=== PATIENT | male | born 1950 | race Caucasian/White ===

== ENCOUNTER 2022-01-21 12:24 | Outpatient (CLI) | payer MEDICARE, OTHER, SELFPAY ==
--- NOTE | ~2022-01-21 | XR_ITS ---
EXAMINATION: XR chest 2V 01/21/2022 12:52 INDICATION: Melanoma PROCEDURE: 2 view chest COMPARISON: No prior studies for comparison. FINDINGS: The lungs are clear. The cardiomediastinal silhouette is within normal limits. There are no pleural effusions. There is no pneumothorax suspected. IMPRESSION: 1: NO ACUTE CARDIOPULMONARY DISEASE. Reviewed, dictated and finalized at location A.
== END 2022-01-21 12:25 | disposition home or self-care (01) ==
PROVIDERS: PCP Family Medicine Sports Medicine; Visit Provider Surgery
DX: C43.71 Malignant melanoma of right lower limb, including hip (principal)
CPT/HCPCS: 71046

== ENCOUNTER 2022-07-29 14:28 | Outpatient (CLI) | payer MEDICARE, OTHER, SELFPAY ==
--- NOTE | ~2022-07-29 | XR_ITS ---
EXAMINATION: XR chest 2V Exam Date/Time: 07/29/2022 14:42 TECHNICAL ILLUSTRATOR HISTORY: MELANOMA OF RIGHT POSTERIOR CALF NO CHEST COMPLAINTS Comparison: 01/21/2022. RESULT: Lines, tubes, and devices: None. Lungs and pleura: Questionable right upper lobe nodule versus summation artifact. Lungs otherwise cl ear. Cardiomediastinal silhouette: Stable. Other: No acute osseous or upper abdominal finding. IMPRESSION: Questionable right upper lobe pulmonary nodule versus summation artifact, recommend low-dose noncontr ast CT of the chest for further evaluation.. Reviewed, dictated and finalized at location K. NICAL ILLUSTRATOR IMPRESSION: Questionable right upper lobe pulmonary nodule versus summation artifact, recom mend low-dose noncontrast CT of the chest for further evaluation..
== END 2022-07-29 14:29 | disposition home or self-care (01) ==
LOC: ANHIMG 14:31
PROVIDERS: PCP Family Medicine Sports Medicine; Visit Provider Surgery
DX: C43.71 Malignant melanoma of right lower limb, including hip (principal); R91.8 Other nonspecific abnormal finding of lung field
CPT/HCPCS: 71046

== ENCOUNTER 2023-01-27 13:49 | Outpatient (CLI) | payer MEDICARE, OTHER, SELFPAY ==
--- NOTE | ~2023-01-27 | XR_ITS ---
Clinical Indication: Malignant melanoma PA and lateral views of the chest: Comparison: 07/29/2022 Findings: The lungs are clear, without evidence of focal consolidation or pleural effusion. Cardiome diastinal silhouette is within normal limits. Bones and soft tissues are unremarkable. Impression: Normal chest. Reviewed, dictated and finalized at location . Impression: Normal chest.
== END 2023-01-27 13:50 | disposition home or self-care (01) ==
PROVIDERS: PCP Family Medicine Sports Medicine; Visit Provider Surgery
DX: C43.71 Malignant melanoma of right lower limb, including hip (principal)
CPT/HCPCS: 71046

== ENCOUNTER 2023-07-28 14:54 | Outpatient (CLI) | payer MEDICARE, SELFPAY ==
--- NOTE | ~2023-07-28 | XR_ITS ---
XR chest 2V DATE: 07/28/2023 15:32 INDICATION: Right posterior calf melanoma TECHNIQUE: 2 views, PA and lateral projections COMPARISON: 01/27/2023 2 view chest FINDINGS: Normal heart size. No hilar or mediastinal enlargement. No pulmonary infiltrate or consol idation, pulmonary vascular congestion or pleural effusion or pneumothorax Degenerative spurring of the thoracic spine. IMPRESSION: No active cardiopulmonary disease Reviewed, dictated and finalized at location B. C SUPERVISOR
== END 2023-07-28 14:55 | disposition home or self-care (01) ==
PROVIDERS: PCP Family Medicine Sports Medicine; Visit Provider Surgery
DX: C43.71 Malignant melanoma of right lower limb, including hip (principal)
CPT/HCPCS: 71046

== ENCOUNTER 2024-09-22 15:13 | Outpatient (CLI) | payer MEDICARE, OTHER, SELFPAY ==
--- NOTE | ~2024-09-22 | XR_ITS ---
CHEST RADIOGRAPH, PA AND LATERAL CLINICAL HISTORY: melanoma of rt posterior calf . COMPARISON: 07/28/2023 TECHNIQUE: PA and lateral views of the chest. FINDINGS The cardiomediastinal silhouette is unremarkable. The lungs are clear. Visualized osseous structures and soft tissues are unremarkable. IMPRESSION: No focal infiltrate or effusion. Reviewed, dictated and finalized at location A. TICS NURSE
--- OUTSIDE RECORDS SUMMARY | 2024-09-22 16:04 | XMS_ITS | Encounter Summary ---
Author Organization [facility] Address [address] [place] [address] Care Team Providers Care Head Start Director Name Role Phone Seven Bettencourt MD Primary Care Provider [phone] Iza Ramachandran WAFER POLISHING LEAD WORKER-SENIOR ACCOUNTANT ANALYST Primary Care Provid er Encounter Details Date Type Department Care Team (Late st Contact Info) Description 07/05/2024 Lab Requisition [facility] - DermPath Lab [address] [facility], [place] [address] Elma Hinds MD [address] [facility] 3 [place] [address] Social History Tobacco Use Types Packs/Day Years Used Date Smoking Tobacco: Never Smokeless Tobacco: Never Alcohol Use Standard Drinks/Week Comments Yes 0 (1 standard drink = 0.6 oz pur e alcohol) twice week, 6 beers Sex and Gender Information Value Date Recorded Sex Assigned at Not on file Gender Identity Not on file Sexual Orientation Not on file documented as of this encounter Functional Status Functional Status Response Date of Assess ment Is person deaf or have serious hearing difficult y? No 07/22/2021 Is person blind or have serious difficulty seein g? No 07/22/2021 Does person have serious dif ficulty walking/climbing stairs? No 07/22/2021 Does person have difficulty dressing/bathing? No 07/22/2021 Does person have difficulty doing errands alone? No 07/22/2021 Cognitive Status Response Date of Assessm ent Does person have difficulty concentrating/remembering/making decisions? No 07/22/2021 documented as of this encounter Plan of Treatment Upcoming Encounters Date Type Department Care Team (Late st Contact Info) Description 09/03/2025 1:00 PM BALANCE AND HAIRSPRING ASSEMBLER Office Visit [facility] - General Surgery [address] [place] [address] Tony Oro MD [address] [facility] [address] [place] [address] documented as of this encounter Procedures Procedure Name Priority Date/Time Associated Diagnosis Comments DERMATOPATHOLOGY Routine 07/05/2024 1:52 PM BALANCE AND HAIRSPRING ASSEMBLER documented in this encounter Results * DERMATOPATHOLOGY (07/05/2024 1:52 PM BALANCE AND HAIRSPRING ASSEMBLER) Case Report Dermatopathology Report Case: [id number] Authorizing Provider: Elma Hinds MD Collected: 07/05/2024 01:52 PM Ordering Location: [facility] Physician [facility] - Received: 07/06/2024 01:34 PM DermPath Lab Pathologist: Alondra Rojas MD Specimens: A) - Skin, crown B) - Skin, right inner knee 12:02 PM [facility] DERMATOPATHOLOGY LABORATORY Final Diagnosis Specimen A. 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 SKIN, right inner knee: INTRADERMAL MELANOCYTIC NEVUS WITH CONGENITAL FEATURES (D22.9) 12:02 PM [facility] DERMATOPATHOLOGY LABORATORY Clinical History A: Non-healing r/o SCC B: pink/brown papula r/o atypia 12:02 PM [facility] DERMATOPATHOLOGY LABORATORY Gross Description Specimen A: Received is one formalin filled container labeled with the patient's name and designated crown. The specimen consists of a shave biopsy measuring 7x7x1 mm. Jar 0. Specimen B: Received is one formalin filled container labeled with the patient's name and designated right inner knee. The specimen consists of a shave biopsy measuring 5x4x1 mm. Jar 0. 4 12:02 PM [facility] DERMATOPATHOLOGY LABORATORY Microscopic Description Specimen A. SKIN, crown: The epidermis shows parakeratosis, full thickness disorderly maturation of keratinocytes, mitoses at different levels, and dyskeratotic cells. In some foci, there is loss of cohesion between the neoplastic cells, as well as individual dyskeratotic cells that lack intercellular bridges. The lesion extends to the base of the biopsy. COMMENT: An invasive squamous cell carcinoma cannot be ruled out. Specimen B. SKIN, right inner knee: There are nests of cytologically bland melanocytes within the dermis. Some of these melanocytes are concentrated around blood vessels and adnexal structures. 4 12:02 PM [facility] DERMATOPATHOLOGY LABORATORY Disclaimer An external and internal positive and negative controls are appropriate for the histochemical, immunohistochemical and immunofluorescence stain(s) in this case (if any), except where stated explicitly. The performance characteristics of the stain(s) cited in this report were developed and its performance characteristic determined by the Dermatopathology Laboratory at [facility], directed by Dr. Fred Lay. These tests need not be, and therefore are not, approved by the [place] Food and Drug Administration. The tests are used for clinical purposes. Billing Codes Specimen Charges Stain Charges 78579 74141 1 1 4 12:02 PM [facility] DERMATOPATHOLOGY LABORATORY Embedded Images 4 12:02 PM [facility] DERMATOPATHOLOGY LABORATORY Pathology/Cytology TISSUE SPECIMEN FROM SKIN / Unknown 07/05/2024 1:52 PM BALANCE AND HAIRSPRING ASSEMBLER 07/06/2024 1:34 PM BALANCE AND HAIRSPRING ASSEMBLER Miscellaneous samples (specimen) TISSUE SPECIMEN FROM SKIN / Unknown 07/05/2024 1:52 PM BALANCE AND HAIRSPRING ASSEMBLER 07/06/2024 1:34 PM BALANCE AND HAIRSPRING ASSEMBLER Elma Hinds MD LAB - PATHOLOGY/CYTO LOGY ORDERABLES DERMATOPATHOLOGY LABORATORY [facility] - Department of Dermatology [facility] Medicine [address] [place] [address], [address] [place] [address], [facility] [phone] documented in this encounter Visit Diagnoses Not on filedocumented in this encounter Care Teams Head Start Director Relationship Specialty Start Date End Date Seven Bettencourt MD [address] [place] [address] PCP - General Family Medicine 01/27/23 07/24/24 Iza Ramachandran APRN-SENIOR ACCOUNTANT ANALYST [address] [place] [address] PCP - General Nurse Practitioner 07/25/24 documented as of this encounter
--- OUTSIDE RECORDS SUMMARY | 2024-09-22 16:04 | XMS_ITS | Clinical Summary ---
Author Organization [facility] Address [address] [facility] [place] [address] Care Team Providers Care Dispatcher Service Or Work Name Role Phone Iza Ramachandran DecemberN-CORRECTIONAL THERAPY TEACHER Primary Care Provid er Source Comments [facility],non-owned Affiliates and Associated Physician Practices is amultiple site organization consisting of ambulatory clinics and hospital sitesin [place], [place], [place] and [place]. This disclosure is being madepursuant to the Care Everywhere program and may not contain all information available regarding this patient. Last updated 18.[facility] Allergies Active Allergy Reactions Criticality Noted Date Comments Peanut-Derived Itching 07/16/2021 Medications * Be aware that medications may not be up to date on this document. Alwaysverify current medications with the patient. Medication Sig Dispensed Refills Start Date End Date Status allopurinol (ZYLOPRIM) 300 MG tablet 06/26/2021 Active indomethacin (INDOCIN) 50 MG capsule 06/26/2021 Active Ibuprofen-Acetaminophe n 125-250 MG TABS Active Aspirin 325 MG CAPS Activ e hydrOXYzine HCl (ATARAX) 25 MG tablet TAKE 1 TABLET EVERY NIGHT AT BEDTIME NEEDED 12/25/2021 Active ketoconazole (NIZORAL) 2 % cream APPLY TO FACE ADN SCALP TWICE A DAY 01/14/2022 Active Active Problems Problem Noted Date Diagnosed Date Melanoma of right posterior calf 07/16/2021 Encounters Date Type Department Care Team Description 09/04/2024 2:15 PM JUICE MIXER Office Visit [facility] - General Surgery [address] [place] [address] Tony Oro MD Melanoma of right posterior calf (HCC) (Primary Dx) 09/04/2024 Travel 08/28/2024 Travel 07/25/2024 Orders Only [facility] - General Surgery [address] [place] [address] Tony Oro MD Melanoma of right posterior calf (HCC) 07/05/2024 Lab Requisition [facility] - DermPath Lab [address] [facility], [place] [address] Elma Hinds MD from Last 3 Months Immunizations Name Administration Dates Next Due Covid Pfizer primary monoval ent 12+ yr 0.3mL Purple cap 07/10/2021,10/03/2020,09/12/2020 Family History Medical History Relation Name Comments Cancer - Other Father Cancer - Other Maternal Grandfather Cancer - Other Mother Relation Name Status Comments Father Maternal Grandfather Mother Social History Tobacco Use Types Packs/Day Years Used Date Smoking Tobacco: Never Smokeless Tobacco: Never Tobacco Cessation:Counseling Given: Not Answered Alcohol Use Standard Drinks/Week Comments Yes 0 (1 standard drink = 0.6 oz pur e alcohol) twice week, 6 beers Sex and Gender Information Value Date Recorded Sex Assigned at Not on file Gender Identity Not on file Sexual Orientation Not on file Last Filed Vital Signs Vital Sign Reading Time Taken Comments Blood Pressure 150/89 09/04/2024 2:06 PM JUICE MIXER Pulse 95 09/04/2024 2:06 PM JUICE MIXER Temperature 36.1 C (97 F) 09/04/2024 2:06 PM JUICE MIXER Respiratory Rate 18 07/29/2022 11:53 AM JUICE MIXER Oxygen Saturation 96% 09/04/2024 2:06 PM JUICE MIXER Inhaled Oxygen Concentration - - Weight 81.6 kg (180 lb) 09/04/2024 2:06 PM JUICE MIXER Height 175.3 cm (5' 9 ) 09/04/2024 2:06 PM JUICE MIXER Body Mass Index 26.58 09/04/2024 2:06 PM JUICE MIXER Plan of Treatment Upcoming Encounters Date Type Department Care Team (Late st Contact Info) Description 09/03/2025 1:00 PM JUICE MIXER Office Visit [facility] - General Surgery [address] [place] [address] Tony Oro MD [address] [facility] [address] [place] [address] Health Maintenance Due Date Last Done Comments COLOGUARD (AGES 45-75) - COL ON CA SCREENING 1950 COLON MONITORING 1950 COLONOSCOPY - COLON CA SCREENING 1950 CT COLONOGRAPHY - COLON CA SCREENING 1950 Colorectal Cancer Screening 1950 FIT - COLON CA SCREENING 1950 FLEX SIG - COLON CA SCREENING 1950 LIPID TESTING 1950 MEDICARE AWV 12 MONTHS 1950 HEPATITIS C SCREENING 09/03/1968 DTAP/TDAP/TD VACCINES (1 - Tdap) 1969 PNEUMOCOCCAL VACCINE 50+ (1 of 1 - PCV) 2000 ZOSTER VACCINE (1 of 2) 2000 COVID-19 VACCINE (4 - 2023-2 5 season) 2024 07/10/2021, 10/03/2020, 09/12/2020 INFLUENZA VACCINE (#1) 2024 DEPRESSION SCREENING 07/19/2024 Respiratory Syncytial Virus (RSV) Vaccine Pt: or over 60 yrs (1 - 1-dose 75+ series) 2025 HEPATITIS B VACCINE Aged Out No longe r eligible based on patient's age to complete this topic HIB VACCINE Aged Out No longer eligi ble based on patient's age to complete this topic HPV VACCINE Aged Out No longer eligi ble based on patient's age to complete this topic MENINGOCOCCAL (Group B) VACCINE Aged Out No longer eligible b ased on patient's age to complete this topic MENINGOCOCCAL VACCINE Aged Out No estefani kenzie eligible based on patient's age to complete this topic Procedures Procedure Name Priority Date/Time Associated Diagnosis Comments DERMATOPATHOLOGY Routine 07/05/2024 1:52 PM JUICE MIXER from Last 3 Months Results * DERMATOPATHOLOGY (07/05/2024 1:52 PM JUICE MIXER) Case Report Dermatopathology Report Case: [id number] Authorizing Provider: Elma Hinds MD Collected: 07/05/2024 01:52 PM Ordering Location: [facility] - Received: 07/06/2024 01:34 PM DermPath Lab Pathologist: Alondra Rojas MD Specimens: A) - Skin, crown B) - Skin, right inner knee 12:02 PM [facility] DERMATOPATHOLOGY LABORATORY Final Diagnosis Specimen A. 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 SKIN, right inner knee: INTRADERMAL MELANOCYTIC NEVUS WITH CONGENITAL FEATURES (D22.9) 12:02 PM [facility] DERMATOPATHOLOGY LABORATORY Clinical History A: Non-healing r/o SCC B: pink/brown papula r/o atypia 12:02 PM [facility] DERMATOPATHOLOGY LABORATORY Gross Description Specimen A: Received is one formalin filled container labeled with the patient's name and designated crown. The specimen consists of a shave biopsy measuring 7x7x1 mm. Jar 0. Specimen B: Received is one formalin filled container labeled with the patient's name and designated right inner knee. The specimen consists of a shave biopsy measuring 5x4x1 mm. Jar 0. 12:02 PM [facility] DERMATOPATHOLOGY LABORATORY Microscopic Description Specimen A. [...] concentrated around blood vessels and adnexal structures. 12:02 PM JUICE MIXER DERMATOPATHOLOGY LABORATORY Disclaimer An external and internal positive and negative controls are appropriate for the histochemical, immunohistochemical and immunofluorescence stain(s) in this case (if any), except where stated explicitly. The performance characteristics of the stain(s) cited in this report were developed and its performance characteristic determined by the Dermatopathology Laboratory at [facility], directed by Dr. Fred Lay. These tests need not be, and therefore are not, approved by the [place] Food and Drug Administration. The tests are used for clinical purposes. Billing Codes Specimen Charges Stain Charges 13332 60504 1 1 4 12:02 PM [facility] M[facility]ER DERMATOPATHOLOGY LABORATORY Embedded Images 4 12:02 PM [facility] DERMATOPATHOLOGY LABORATORY Pathology/Cytology TISSUE SPECIMEN FROM SKIN / Unknown 07/05/2024 1:52 PM JUICE MIXER 07/06/2024 1:34 PM JUICE MIXER Miscellaneous samples (specimen) TISSUE SPECIMEN FROM SKIN / Unknown 07/05/2024 1:52 PM JUICE MIXER 07/06/2024 1:34 PM JUICE MIXER Elma Hinds MD LAB - PATHOLOGY/CYTO LOGY ORDERABLES Performing Organization Address City/State/[facility] Co de Phone Number DERMATOPATHOLOGY LABORATORY [facility] - Department of Dermatology [facility] Specialized Medicine [address] [place] [address], [address] [phone] from Last 3 Months Care Teams Dispatcher Service Or Work Relationship Specialty Start Date End Date Iza Ramachandran December, SELLING UNDERWRITER-CORRECTIONAL THERAPY TEACHER [address] [place] [address] PCP - General Nurse Practitioner 07/25/24
--- OUTSIDE RECORDS SUMMARY | 2024-09-22 16:04 | XMS_ITS | Encounter Summary ---
Author Organization [facility] Address [address] [facility] [place] [address] Care Team Providers Care Erp Specialist Name Role Phone Seven Bettencourt MD Primary Care Provider [phone] Iza Ramachandran SPECIAL EDUCATION AIDE-ORIENTAL RUG STRETCHER Primary Care Provid er Encounter Details Date Type Department Care Team (Late st Contact Info) Description 03/01/2023 Lab Requisition [facility] - DermPath Lab [address] [facility], [place] [address] Elma Hinds MD [address] [facility] 3 [place] [address] Social History Tobacco Use Types Packs/Day Years [...] st Contact Info) Description 09/03/2025 1:00 PM FREIGHT CONDUCTOR Office Visit [facility] - General Surgery [address] [place] [address] Tony Oro MD [address] [facility] [address] [place] [address] documented as of this encounter Procedures Procedure Name Priority Date/Time Associated Diagnosis Comments DERMATOPATHOLOGY Routine 03/01/2023 2:36 PM CDT documented in this encounter Results * DERMATOPATHOLOGY (03/01/2023 2:36 PM CDT) Case Report Dermatopathology Report Case: [id number] Authorizing Provider: Elma Hinds MD Collected: 03/01/2023 02:36 PM Ordering Location: [facility] DermPath Lab Received: 03/02/2023 01:42 PM Pathologist: Samia Ortiz MD Specimen: Skin, right arm 3 2:13 PM CDT DERMATOPATHOLOGY LABORATORY Final Diagnosis Specimen A. SKIN, right arm: LENTIGINOUS MELANOCYTIC NEVUS, JUNCTIONAL TYPE, IRRITATED (D22.61) 3 2:13 PM CDT DERMATOPATHOLOGY LABORATORY Clinical History NEVUS R/O MM 3 2:13 PM CDT DERMATOPATHOLOGY LABORATORY Gross Description Specimen A: Received is one formalin filled container labeled with the patient's name and designated right arm. The specimen consists of a shave biopsy measuring 8x5x1 mm. Jar 0. 3 2:13 PM CDT DERMATOPATHOLOGY LABORATORY Microscopic Description Specimen A. SKIN, right arm: This is a junctional nevus. There is melanin pigment in the stratum corneum. There is a lentiginous proliferation of melanocytes between nests of cells along the dermal-epidermal junction. There is underlying fibroplasia of the papillary dermis. (Junctional Jaxon's Nevus) 3 2:13 PM CDT DERMATOPATHOLOGY LABORATORY Disclaimer An external and internal positive and negative controls are appropriate for the histochemical, immunohistochemical and immunofluorescence stain(s) in this case (if any), except where stated explicitly. The performance characteristics of the stain(s) cited in this report were developed and its performance characteristic determined by the Dermatopathology Laboratory at [facility], directed by Dr. Fred Lay. These tests need not be, and therefore are not, approved by the [place] Food and Drug Administration. The tests are used for clinical purposes. Billing Codes Specimen Charges Stain Charges 23365 1 3 2:13 PM CDT DERMATOPATHOLOGY LABORATORY Embedded Images 3 2:13 PM CDT DERMATOPATHOLOGY LABORATORY Pathology/Cytolo gy TISSUE SPECIMEN FROM SKIN / Unknown 03/01/2023 2:36 PM CDT 03/02/2023 1:42 PM CDT Elma Hinds MD LAB - PATHOLOGY/CYTO LOGY ORDERABLES Performing Organization Address City/State/[facility] Co de Phone Number DERMATOPATHOLOGY LABORATORY [facility] - Department of Dermatology [facility] Medicine [address] [place] [address], [address] [phone] documented in this encounter Visit Diagnoses Not on filedocumented in this encounter Care Teams Erp Specialist Relationship Specialty Start Date End Date Seven Bettencourt MD [address] [place] [address] PCP - General Family Medicine 01/27/23 07/24/24 Iza Ramachandran, MINDY-ORIENTAL RUG STRETCHER [address] [place] [address] PCP - General Nurse Practitioner 07/25/24 documented as of this encounter
--- OUTSIDE RECORDS SUMMARY | 2024-09-22 16:05 | XMS_ITS ---
Author Organization [facility] [employer], [facility] Address [address] [place] [address] Dr. Hernandez [address] [place] [phone] Care Team Providers Care Chief Talent Officer Name Role Phone Troy Nicole MD Primary Care Provider Thong Alvarado Unavailable [phone] REASON FOR VISIT 10/27 GH colon prep Medications Medication SIG (Take, Route, Frequency, Duration) Notes Start Date End Date Status Suflave 178.7 GM ML Orally twice a da y, Follow Physician Instructions. for 1 days Name of Prep: Suflave Date of Colon: 10/27 Pt. 09/22/2024 Active Encounters Encounter Location Date Provider Diagnosis [address] Hernandez [address] [place] [phone] 09/21/2024 Thong Curiel Plan Of Treatment Medication Medication Name Sig Start Date Stop Date Notes Suflave 178.7 GM ML Orally twice a da y, Follow Physician Instructions. for 1 days 09/22/2024 Name of Prep: Suflave Date of Colon: 10/27 Pt. Next Appt Details Provider Name:Thong Curiel, 10/27/2024 11:00:00 AM, [address] [facility], [address], [place], [address], Progress Notes * Oren BRUMFIELD CDOB:[birth year] (74 yo M)Acc No.[id number]:09/21/2024 Patient: Mayito DIAZyamile Daugherty :1950 A ge:74 Y S ex:Male Address:[address] [place] [address], [address] * Refills Start Suflave Solution Reconstituted, 178.7 GM, Orally, 1 Kit, ML, twice a day, Follow Physician Instructions., 1 days, Refills=0 * true * Date: Generated for Andres vilchis/Kayode/Fernitting on: 0 09/22/2024 04:04 PM PATIENT TRANSITION SPECIALIST
--- OUTSIDE RECORDS SUMMARY | 2024-09-22 16:05 | XMS_ITS | Patient Health Summary ---
Author Organization [facility] Address [address] [place] [address] Care Team Providers Care Security Officer Supervisor Name Role Phone Iza Ramachandran December [employer] DEPARTMENT CHAIR-SORTING SUPERVISOR Primary Care Provid er Note from [facility],non-owned Affiliates and Associated Physician Practices is amultiple site organization consisting of ambulatory clinics and hospital sitesin [place], [place], [place] and [place]. This disclosure is being madepursuant to the Care Everywhere program and may not contain all information available regarding this patient. Last updated 18.[facility] Allergies * Peanut-Derived(Itching) Medications * Be aware that medications may not be up to date on this document. Alwaysverify current medications with the patient. 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 Immunizations * Covid Pfizer primary monovalent 12+ yr 0.3mL Purple cap(Given 07/10/2021, 10/03/2020, 09/12/2020) Social History Tobacco Use Types Packs/Day Years [...] Comments Blood Pressure 150/89 09/04/2024 2:06 PM MAGAZINE WORKER Pulse 95 09/04/2024 2:06 PM MAGAZINE WORKER Temperature 36.1 C (97 F) 09/04/2024 2:06 PM MAGAZINE WORKER Respiratory Rate 18 07/29/2022 11:53 AM MAGAZINE WORKER Oxygen Saturation 96% 09/04/2024 2:06 PM MAGAZINE WORKER Inhaled Oxygen Concentration - - Weight 81.6 kg (180 lb) 09/04/2024 2:06 PM MAGAZINE WORKER Height 175.3 cm (5' 9 ) 09/04/2024 2:06 PM MAGAZINE WORKER Body Mass Index 26.58 09/04/2024 2:06 PM MAGAZINE WORKER Procedures * DERMATOPATHOLOGY(Performed 07/05/2024) * DERMATOPATHOLOGY(Performed 03/01/2023) * DERMATOPATHOLOGY(Performed 08/13/2022) * DERMATOPATHOLOGY(Performed 01/14/2022) * PATHOLOGY TISSUE(Performed 07/22/2021) Performed for Melanoma of right posterior calf (HCC) * GRAFT SKIN SPLIT THICKNESS(Performed 07/22/2021) Performed for Melanoma of right posterior calf (HCC) * EXCISION MASS OR TUMOR LEG/KNEE(Performed 07/22/2021) Performed for Melanoma of right posterior calf (HCC) * WI SENTINEL LYMPH NODE BX PROC PERFORM(Performed 07/22/2021) Performed for Melanoma of right posterior calf (HCC) * LARYNGEAL MASK AIRWAY(Performed 07/22/2021) * NM LYMPHOSCINTIGRAPHY(Performed 07/22/2021) Performed for Melanoma of right posterior calf (HCC) * XR CHEST 2VW(Performed 07/16/2021) Performed for Melanoma of right posterior calf (HCC) * COMPREHENSIVE METABOLIC PANEL(Performed 07/16/2021) Performed for Melanoma of right posterior calf (HCC) * CBC W AUTO DIFFERENTIAL(Performed 07/16/2021) Performed for Melanoma of right posterior calf (HCC) * EKG 12-LEAD(Performed 07/16/2021) Performed for Melanoma of right posterior calf (HCC) * DERMATOPATHOLOGY(Performed 07/03/2021) Results * DERMATOPATHOLOGY (07/05/2024 1:52 PM MAGAZINE WORKER) Only the most recent of5 resultswithin the time period is included. Case Report Dermatopathology Report Case: [id number] Authorizing Provider: Elma Hinds MD Collected: 07/05/2024 01:52 PM Ordering Location: [facility] - Received: 07/06/2024 01:34 PM DermPath Lab Pathologist: Alondra Rojas MD Specimens: A) - Skin, crown B) - Skin, right inner knee 12:02 PM MAGAZINE WORKER DERMATOPATHOLOGY LABORATORY Final Diagnosis Specimen A. 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 SKIN, right inner knee: INTRADERMAL MELANOCYTIC NEVUS WITH CONGENITAL FEATURES (D22.9) 12:02 PM MAGAZINE WORKER DERMATOPATHOLOGY LABORATORY Clinical History A: Non-healing r/o SCC B: pink/brown papula r/o atypia 12:02 PM MAGAZINE WORKER DERMATOPATHOLOGY LABORATORY Gross Description Specimen A: Received [...] measuring 5x4x1 mm. Jar 0. 12:02 PM MAGAZINE WORKER DERMATOPATHOLOGY LABORATORY Microscopic Description Specimen A. SKIN, [...] vessels and adnexal structures. 4 12:02 PM MAGAZINE WORKER DERMATOPATHOLOGY LABORATORY Disclaimer An external and internal positive and negative controls are appropriate for the histochemical, immunohistochemical and immunofluorescence stain(s) in this case (if any), except where stated explicitly. The performance characteristics of the stain(s) cited in this report were developed and its performance characteristic determined by the Dermatopathology Laboratory at [facility], directed by Dr. Fred Lay. These tests need not be, and therefore are not, approved by the [place] Food and Drug Administration. The tests are used for clinical purposes. Billing Codes Specimen Charges Stain Charges 39450 28567 1 1 4 12:02 PM MAGAZINE WORKER DERMATOPATHOLOGY LABORATORY Embedded Images 4 12:02 PM MAGAZINE WORKER DERMATOPATHOLOGY LABORATORY Pathology/Cytology TISSUE SPECIMEN FROM SKIN / Unknown 07/05/2024 1:52 PM MAGAZINE WORKER 07/06/2024 1:34 PM MAGAZINE WORKER Miscellaneous samples (specimen) TISSUE SPECIMEN FROM SKIN / Unknown 07/05/2024 1:52 PM MAGAZINE WORKER 07/06/2024 1:34 PM MAGAZINE WORKER Elma Hinds MD LAB - PATHOLOGY/CYTO LOGY ORDERABLES DERMATOPATHOLOGY LABORATORY [facility] Department of Dermatology [address], [address] [phone] * PATHOLOGY TISSUE (07/22/2021 2:19 PM MAGAZINE WORKER) Case Report Surgical Pathology Report Case: [id number] Authorizing Provider: Tony Oro MD Collected: 07/22/2021 02:19 PM Ordering Location: [facility] Received: 07/22/2021 03:27 PM Pathologist: Fariba Maldonado Mai, DO Specimens: A) - [place] Lymph Node, Right Groin [place] Lymph Node, Stitch at Hot Spot - PERM B) - Skin, Right Calf Melanoma; Stitch at 12 O'Clock - PERM 07/27/2021 11:28 AM MAGAZINE WORKER [facility] Final Diagnosis Lymph node, right groin sentinel, dissection (A): - No melanoma in one lymph node (0/1) Skin, right calf, excision (B): - No residual melanoma - Biopsy site changes 07/27/2021 11:28 AM [facility] Microscopic Description and Comment A. Sections show a lymph node with extensive fatty replacement. Properly controlled [place] 1/Melan-A and HMB45 stains were performed to evaluate the sentinel node. There is no evidence of metastatic melanoma. B. Sections show skin with ulceration, granulation tissue and acute inflammation consistent with biopsy site changes. The epidermis in this region shows reactive hyperplasia. HMB45 staining did not reveal any atypical melanocytic proliferation at the biopsy bed. There is no evidence of residual melanoma. 07/27/2021 11:28 AM [facility] Clinical History The patient is a 70-year-old male with a history of pigmented lesion on the right thigh. A biopsy revealed a 1.5 mm thickness melanoma, not present at the margin. The patient underwent a wide excision of the lesion and lymph node dissection. 07/27/2021 11:28 AM [facility] Gross Description The requisition and specimen (s) are identified with the patient's name, Oren Perez. Received in formalin, specimen A is a soft yellow-lang fragment of fibroadipose tissue 2.2 x 2 x 1.3 cm. There is a stitch designated hotspot. Dissection reveals a single lymph node 1.9 x 1.8 x 0.9 cm. The lymph node is trisected and submitted entirely in cassettes A1 and A2. Received in formalin, specimen B , is a circular segment of light lang skin 5.7 x 5.2 cm with 1.0 cm depth of yellow-lang subcutaneous tissue. There is a stitch designated 12:00. There is a central ulceration 1.7 x 1.2 cm, 1.9 cm from 12:00 margin, 1.9 cm from 3:00 margin, 2.1 cm from 6:00 margin, and 2.1 cm from 9:00 margin. The specimen is inked as follows: 3:00 margin-green 9:00 margin-blue, and deep margin black. Sectioning reveals no discrete lesion. Specimen is submitted as follows: B1-12:00 perpendicular margin, B2-6:00 perpendicular margin, [id number] entirely submitted from 12:00 to 6:00 (complete cross-section bisected per cassette). 07/27/2021 11:28 AM [facility] Disclaimer The performance characteristics of all immunohistochemical and indirect immunofluorescence stains (if any) cited in this report were determined by the Histopathology Laboratory of [facility]. Some of these tests were developed by our own laboratory and have not been cleared or approved by the US Food and Drug Administration. The FDA does not require this test to go through premarket FDA review. These tests are used for clinical purposes. They should not be regarded as investigational or for research. This laboratory is certified under the Clinical Laboratory Improvement Amendments (CLIA) as qualified to perform high complexity clinical laboratory testing. This case has been personally reviewed and interpreted by the attending (teaching) pathologist. 07/27/2021 11:28 AM [facility] Embedded Images 07/27/2021 11:28 AM [facility] Lymph Node Dissection SPECIMEN FROM SENTINEL LYMPH NODE / Unknown 07/22/2021 2:19 PM MAGAZINE WORKER 07/22/2021 3:27 PM MAGAZINE WORKER Comment:Pre-op diagnosis: MELANOMA RIGHT CALF Biopsy, Excision TISSUE SPECIMEN FROM SKIN / Unknown 07/22/2021 2:42 PM MAGAZINE WORKER 07/22/2021 3:27 PM MAGAZINE WORKER Comment:Pre-op diagnosis: MELANOMA RIGHT CALF Tony Oro MD LAB - PATHOLOGY/CYTO LOGY ORDERABLES Performing Organization Address [facility]/State/[facility] Phone Number [facility] [address] [phone] * LARYNGEAL MASK AIRWAY (07/22/2021 1:56 PM MAGAZINE WORKER) Narrative Mars Morgan APRN-CELL RELINER - 07/22/2021 1:56 PM MAGAZINE WORKER Mars Morgan APRN-CRNA 07/22/2021 1:57 PM LMA Placement Procedure/LDA Note: Patient Location: OR. LMA Insertion Date/Time: 07/22/2021 1:40 PM Procedure: LMA. Pretreatment: 100% O2 Induction: standard IV Patient position: sniffing. Mask Ventilation: easy Type: LMA Size: 4 Number of Attempts: 1. Placement verified by: direct visualization, bilateral breath sounds, chest auscultation and CO2 monitor Dentition unchanged? Yes Procedure Start Time: 07/22/2021 1:40 PM. Staff Section Anesthesia Provider: Mars Morgan APRN-LUKASZ, Performed the procedure Ellie Koroma MD GENERAL ANESTHESIA ORDERABLES * NM LYMPHOSCINTIGRAPHY (07/22/2021 11:44 AM MAGAZINE WORKER) Anatomical Region Laterality Modality Nuclear Medicine 07/22/2021 11:3 4 AM MAGAZINE WORKER Impressions 07/22/2021 4:00 PM MAGAZINE WORKER IMPRESSION: [place] lymph node identification and marking in the right inguinal region. This report was approved by Blank Arroyo on 07/22/2021 2:56 PM . I, Dr. YUN ALVAREZ D.O. have personally reviewed and interpreted this examination/study. This report was electronically signed by YUN ALVAREZ D.O. on 07/22/2021 4:00 PM . Narrative 07/22/2021 4:00 PM MAGAZINE WORKER PROCEDURE: Lymphoscintigraphy - [place] lymph node detection. HISTORY: 70-year-old male with right posterior calf melanoma. The patient is opting for wide excision with sentinel lymph node dissection. Patient's BMI 26.45 kg/m2. TECHNIQUE: A total dose of 991 uCi Tc-99m tilmanocept (Lymphoseek) was given intradermally by 4 separate intradermal injections around the original lesion in the right posterior calf by Dr. Oro. Dr. Alvarez was there for the torres portion of the procedure. Planar dynamic images of pelvis and lower extremities were obtained. COMPARISON: No prior similar study is available for comparison. FINDINGS: Planar dynamic images of pelvis and lower extremities initially shows a faint trail of activity leading towards right inguinal region. Subsequently, a sentinel node is localized in the right inguinal region. No evidence of sentinel lymph node contralaterally. The sentinel lymph node was marked on the skin based on anterior and posterior projection. Procedure Note Yun Alvarez, - 07/22/2021 PROCEDURE: Lymphoscintigraphy - [place] lymph node detection. HISTORY: 70-year-old male with right posterior calf melanoma. The patient isopting for wide excision with sentinel lymph node dissection. Patient's BMI26.45 kg/m2. TECHNIQUE: A total dose of 991 uCi Tc-99m tilmanocept (Lymphoseek) was given intradermally by 4 separate intradermal injections around the original lesion in the right posterior calf by Dr. Oro. Dr. Alvarez was there for the torres portion of the procedure. Planar dynamic images of pelvisand lower extremities were obtained. COMPARISON: No prior similar study is available for comparison. FINDINGS: Planar dynamic images of pelvis and lower extremities initially shows a faint trail of activity leading towards right inguinal region. Subsequently, a sentinel node is localized in the right inguinal region. No evidence of sentinel lymph node contralaterally. The sentinel lymph node was marked on the skin based on anterior and posterior projection. IMPRESSION: [place] lymph node identification and marking in the right inguinal region. This report was approved by Blank Arroyo on 07/22/2021 2:[address] YUN Fischer D.O. have personally reviewed and interpreted this examination/study. This report was electronically signed by YUN ALVAREZ D.O. on07/22/2021 4:00 PM . Tony Oro MD [place] ORDERABLES * XR CHEST 2VW (07/16/2021 1:35 PM MAGAZINE WORKER) Anatomical Region Laterality Modality Chest Radiographic Josette ging 07/16/2021 3:41 PM MAGAZINE WORKER Impressions 07/16/2021 5:15 PM MAGAZINE WORKER FINDINGS/IMPRESSION: Asymmetric elevation of the right hemidiaphragm. There are several perihilar calcified granulomas/lymph nodes seen on the right. There is no focal consolidation, pleural effusion, or pneumothorax. The cardiomediastinal silhouette is normal. The visible bony thorax is intact. Dictated by Myke Holden DO (cardiac cath lab radiology technologist). Dr. JESS Fischer have personally reviewed and interpreted this examination/study. This report was electronically signed by JESS BURCH on 07/16/2021 5:15 PM . Narrative 07/16/2021 5:15 PM MAGAZINE WORKER EXAMINATION: XR CHEST 2VW HISTORY: C43.71: Melanoma of right posterior calf COMPARISON: None. Procedure Note Jess Burch MD - 07/16/2021 EXAMINATION: XR CHEST 2VW HISTORY: C43.71: Melanoma of right posterior calf COMPARISON: None. FINDINGS/IMPRESSION: Asymmetric elevation of the right hemidiaphragm. There are several perihilar calcified granulomas/lymph nodes seen on the right. There isno focal consolidation, pleural effusion, or pneumothorax. The cardiomediastinal silhouette is normal. The visible bony thorax isintact. Dictated by Myke Holden DO (cardiac cath lab radiology technologist). I, Dr. JESS BURCH have personally reviewed and interpreted this examination/study. This report was electronically signed by JESS BURCH on 07/16/2021 5:15 PM . Tony Oro MD DIAGNOSTIC IMAGING O RDERABLES * (ABNORMAL) CBC WITH DIFFERENTIAL (07/16/2021 1:20 PM MAGAZINE WORKER) WBC 5.8 3.5 - 10.5 10 3/uL 07/16/2021 2:[address] [facility] RBC 3.86(L) 4.30 - 5.70 10 6/uL 07/16/2021 2:20 PM [facility] Hemoglobin 11.5(L) 12.0 - 17.6 g/dL 07/16/2021 2:20 PM [facility] Hematocrit 37.0 35.2 - 51.7 % 07/16/2021 2:20 PM [facility] MCV 95.9 80.7 - 98.3 fL 07/16/2021 2:20 PM [facility] MCH 29.8 26.7 - 34.0 pg 07/16/2021 2:20 PM [facility] MCHC 31.1 30.8 - 35.9 g/dL 07/16/2021 2:20 PM [facility] Platelet Count 256 150 - 400 10 3/uL 07/16/2021 2:20 PM [facility] RDW-SD 47.2 36.0 - 50.0 fL 07/16/2021 2:20 PM [facility] RDW-CV 13.3 11.2 - 14.8 % 07/16/2021 2:20 PM [facility] MPV 10.0 9.4 - 12.9 fL 07/16/2021 2:20 PM [facility] nRBC Absolute 0.00 0 10 3/uL 07/16/2021 2:20 PM [facility] nRBC Auto 0.0 0 /100 WBC 07/16/2021 2:20 PM [facility] Neutrophils % 51.2 35.0 - 70.0 % 07/16/2021 2:20 PM [facility] Lymphocytes % 37.5 20.0 - 43.0 % 07/16/2021 2:20 PM [facility] Monocytes % 9.3 5.0 - 13.0 % 07/16/2021 2:20 PM [facility] Eosinophils % 1.2 0.0 - 6.0 % 07/16/2021 2:20 PM [facility] Basophil % 0.5 0.0 - 2.0 % 07/16/2021 2:20 PM [facility] Neutrophils Absolute 3.0 1.6 - 7.0 10 3/uL 07/16/2021 2:20 PM [facility] Lymphocyte Absolute 2.2 1.1 - 3.9 10 3/uL 07/16/2021 2:20 PM [facility] Monocytes Absolute 0.54 0.26 - 1.07 10 3/uL 07/16/2021 2:20 PM [facility] Eosinophils Absolute 0.07 0.00 - 0.47 10 3/uL 07/16/2021 2:20 PM [facility] Basophils Absolute 0.03 0.00 - 0.08 10 3/uL 07/16/2021 2:20 PM [facility] Immature Granulocytes % 0.3 0.0 - 1.0 % 07/16/2021 2:20 PM [facility] Immature Granulocytes Absolute 0.02 07/16/2021 2:20 PM [facility] Blood BLOOD SPECIMEN / Unknown Lab Venipuncture / Unknown 07/16/2021 1:20 PM MAGAZINE WORKER 07/16/2021 2:14 PM MAGAZINE WORKER Tony Oro MD LAB - HEMATOLOGY ORD ERABLES [facility] [address] [place] [address], [facility] [phone] * (ABNORMAL) COMPREHENSIVE METABOLIC PANEL (07/16/2021 1:20 PM MAGAZINE WORKER) BUN 13 7 - 26 mg/dL 07/16/2021 2:37 PM [facility] Creatinine 1.03 0.71 - 1.16 mg/dL 07/16/2021 2:37 PM [facility] Sodium 141 136 - 145 mmol/L 07/16/2021 2:37 PM [facility] Potassium 4.5 3.5 - 4.5 mmol/L 07/16/2021 2:37 PM [facility] Chloride 108(H) 98 - 107 mmol/L 07/16/2021 2:37 PM [facility] CO2 25 22 - 29 mmol/L 07/16/2021 2:37 PM [facility] Glucose 96 70 - 115 mg/dL 07/16/2021 2:37 PM [facility] Calcium 9.3 8.4 - 10.2 mg/dL 07/16/2021 2:37 PM [facility] Protein Total 7.8 6.0 - 8.3 g/dL 07/16/2021 2:37 PM [facility] Albumin 4.0 3.4 - 5.0 g/dL 07/16/2021 2:37 PM [facility] Bilirubin Total 0.4 0.2 - 1.2 mg/dL 07/16/2021 2:37 PM [facility] Alkaline Phosphatase 73 40 - 150 U/L 07/16/2021 2:37 PM [facility] ALT 24 5 - 55 U/L 07/16/2021 2:37 PM [facility] AST 21 5 - 34 U/L 07/16/2021 2:37 PM [facility] Anion Gap 13 8 - 18 07/16/2021 2:37 PM [facility] BUN/Creatinine Ratio 13 7 - 23 07/16/2021 2:37 PM [facility] Osmolality Calculated 292 270 - 300 mOsm/kg 07/16/2021 2:37 PM MAGAZINE WORKER [facility] Albumin/Globulin Ratio 1.1 1.1 - 2.3 07/16/2021 2:37 PM [facility] eGFR by CKD-EPI 73(L) >=90 mL/min/1.7 3 m2 07/16/2021 2:37 PM MAGAZINE WORKER [facility] Blood BLOOD SPECIMEN / Unknown Lab Venipuncture / Unknown 07/16/2021 1:20 PM MAGAZINE WORKER 07/16/2021 2:14 PM MAGAZINE WORKER Tony Oro MD LAB - CHEMISTRY ORDE CY [facility] [address] [place] [address], [facility] [phone] * EKG 12-LEAD (07/16/2021 12:06 PM MAGAZINE WORKER) Pathologist [facility] Ventricular Rate 75 BPM [facility] MUSE Atrial Rate 75 BPM [facility] P-R Interval 192 ms [facility] QRS Duration ms 122 ms [facility] Q-T Interval ms 400 ms [facility] QTC Calculation (Bezet) 446 ms [facility] Calculated P [place] 57 degrees [facility] Calculated R [place] 30 degrees [facility] Calculated T [place] 48 degrees [facility] Interpretation EKG NORMAL SINUS RHYTHM POSSIBLE SEPTAL INFARCT , AGE UNDETERMINED ABNORMAL ECG NO PREVIOUS ECGS AVAILABLE Confirmed by Addi Lowe ([id number]) on 07/18/2021 11:01:37 AM [facility] 07/16/2021 12:0 6 PM MAGAZINE WORKER 07/18/2021 11:01 AM MAGAZINE WORKER Tony Oro MD ECG ORDERABLES [facility] Care Teams Security Officer Supervisor Relationship Specialty Start Date End Date DuarteIza navarrete December, [employer] DEPART[employer] CHAIR-SORTING SUPERVISOR [address] [place] [address] PCP - General Nurse Practitioner 07/25/24
--- OUTSIDE RECORDS SUMMARY | 2024-09-22 16:05 | XMS_ITS | Referral Summary ---
Author Organization [facility] Address [address] [facility] [place] [address] Care Team Providers Care Commercial Lease Administrator Name Role Phone Iza Ramachandran DecemberN-HTML DEVELOPER Primary Care Provid er Source Comments [facility],non-owned Affiliates and Associated Physician Practices is amultiple site organization consisting of ambulatory clinics and hospital sitesin [place], [place], [place] and [place]. This disclosure is being madepursuant to the Care Everywhere program and may not contain all information available regarding this patient. Last updated 18.[facility] Encounters Date Type Department Care Team Description 09/04/2024 Travel 09/04/2024 2:15 PM MOISTURE CONDITIONER OPERATOR Office Visit [facility] - General Surgery [address] [place] [phone] Tony Oro MD Melanoma of right posterior calf (HCC) (Primary Dx) 08/28/2024 Travel 07/25/2024 Orders Only [facility] - General Surgery [address] [place] [phone] Tony Oro MD Melanoma of right posterior calf (HCC) 07/05/2024 Lab Requisition [facility] - DermPath Lab [address] [facility] [place] [phone] Elma Hinds MD from Last 3 Months Allergies Active Allergy Reactions Criticality Noted Date [...] Melanoma of right posterior calf 07/16/2021 Immunizations Name Administration Dates Next Due Katheryn Appetise primary monoval ent 12+ yr 0.3mL Purple cap 07/10/2021,10/03/2020,09/12/2020 Social History Tobacco Use Types Packs/Day Years [...] Comments Blood Pressure 150/89 09/04/2024 2:06 PM MOISTURE CONDITIONER OPERATOR Pulse 95 09/04/2024 2:06 PM MOISTURE CONDITIONER OPERATOR Temperature 36.1 C (97 F) 09/04/2024 2:06 PM MOISTURE CONDITIONER OPERATOR Respiratory Rate 18 07/29/2022 11:53 AM MOISTURE CONDITIONER OPERATOR Oxygen Saturation 96% 09/04/2024 2:06 PM MOISTURE CONDITIONER OPERATOR Inhaled Oxygen Concentration - - Weight 81.6 kg (180 lb) 09/04/2024 2:06 PM MOISTURE CONDITIONER OPERATOR Height 175.3 cm (5' 9 ) 09/04/2024 2:06 PM MOISTURE CONDITIONER OPERATOR Body Mass Index 26.58 09/04/2024 2:06 PM MOISTURE CONDITIONER OPERATOR Functional Status Functional Status Response Date of [...] person have difficulty concentrating/remembering/making decisions? No 07/22/2021 Plan of Treatment Upcoming Encounters Date Type Department Care Team (Late st Contact Info) Description 09/03/2025 1:00 PM MOISTURE CONDITIONER OPERATOR Office Visit [facility] - General Surgery [address] [place] [phone] Tony Oro MD [address] [facility] [address] [place] [address] Procedures Procedure Name Priority Date/Time Associated Diagnosis Comments DERMATOPATHOLOGY Routine 07/05/2024 1:52 PM MOISTURE CONDITIONER OPERATOR from Last 3 Months Results * DERMATOPATHOLOGY (07/05/2024 1:52 PM MOISTURE CONDITIONER OPERATOR) Case Report Dermatopathology Report Case: [id number] Authorizing Provider: Elma Hinds MD Collected: 07/05/2024 01:52 PM Ordering Location: [facility] - Received: 07/06/2024 01:34 PM DermPath Lab Pathologist: Alondra Rojas MD Specimens: A) - Skin, crown B) - Skin, right inner knee 12:02 PM MOISTURE CONDITIONER OPERATOR DERMATOPATHOLOGY LABORATORY Final Diagnosis Specimen A. 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 SKIN, right inner knee: INTRADERMAL MELANOCYTIC NEVUS WITH CONGENITAL FEATURES (D22.9) 4 12:02 PM MOISTURE CONDITIONER OPERATOR DERMATOPATHOLOGY LABORATORY Clinical History A: Non-healing r/o SCC B: pink/brown papula r/o atypia 4 12:02 PM MOISTURE CONDITIONER OPERATOR DERMATOPATHOLOGY LABORATORY Gross Description Specimen A: Received [...] 5x4x1 mm. Jar 0. 4 12:02 PM [facility] DERMATOPATHOLOGY LABORATORY Microscopic Description Specimen A. SKIN, [...] vessels and adnexal structures. 4 12:02 PM [facility] DERMATOPATHOLOGY LABORATORY Disclaimer An external and internal [...] purposes. Billing Codes Specimen Charges Stain Charges [id number] [id number] 1 4 12:02 PM MOISTURE CONDITIONER OPERATOR DERMATOPATHOLOGY LABORATORY Embedded Images 4 12:02 PM [facility] DERMATOPATHOLOGY LABORATORY Pathology/Cytology TISSUE SPECIMEN FROM SKIN / Unknown 07/05/2024 1:52 PM MOISTURE CONDITIONER OPERATOR 07/06/2024 1:34 PM MOISTURE CONDITIONER OPERATOR Miscellaneous samples (specimen) TISSUE SPECIMEN FROM SKIN / Unknown 07/05/2024 1:52 PM MOISTURE CONDITIONER OPERATOR 07/06/2024 1:34 PM MOISTURE CONDITIONER OPERATOR Elma Hinds MD LAB - PATHOLOGY/CYTO LOGY ORDERABLES DERMATOPATHOLOGY LABORATORY [facility] - Department of Dermatology [address], [address] [phone] from Last 3 Months Care Teams Commercial Lease Administrator Relationship Specialty Start Date End Date DuarteIza navarrete December, AUTOMATIC SPINNING LATHE OPERATOR-HTML DEVELOPER [address] [place] [phone] PCP - General Nurse Practitioner 07/25/24
--- OUTSIDE RECORDS SUMMARY | 2024-09-22 16:05 | XMS_ITS | Patient Health Record ---
Author Organization [facility] Address [address] [place] [address] [address] [place] [address] Care Team Providers Care Agricultural Research Technologist Name Role Phone Troy Nicole MD Primary Care Provider Thong Alvarado Unavailable [phone] Reason For Referral No Information Medications Medication SIG (Take, Route, Frequency, Duration) Notes Start Date End Date Status Suflave 178.7 GM ML Orally twice a da y, Follow Physician Instructions. for 1 days Name of Prep: Suflave Date of Colon: 10/27 Pt. 09/22/2024 Active Encounters Encounter Location Date Provider Diagnosis [facility] [place] [address] 09/21/2024 Thong Curiel Plan Of Treatment Next Appt Details Provider Name:Thong Curiel, 10/27/2024 11:00:00 AM, [address], [place], [address], Insurance Providers Payer Name Payer Address Payer Phone Subscriber Number Group Number Insured Name Patient Relationship to Insured Coverage Start Date Coverage End Date Medicare E2 [address] [address] [place] [phone] [id number] Oren Perez Self - patient is the insured [employer] [address] [place] [address] [id number] Oren Perez Self - patient is the insured
== END 2024-09-22 15:14 | disposition home or self-care (01) ==
PROVIDERS: PCP Family Medicine; Visit Provider Surgery
DX: C43.71 Malignant melanoma of right lower limb, including hip (principal)
CPT/HCPCS: 71046